=== PATIENT | male | born 1975 | race American Indian/Alaskan Native ===

== ENCOUNTER 2017-11-20 03:20 | Emergency (ER) | payer MEDICAID, OTHER ==
[2017-11-20 05:00] LABS: Urine Drugs of Abuse Note Disclamer
[2017-11-20 05:17] LABS: Anion Gap 17 mmol/L; BUN/Creatinine Ratio 10; Blood Urea Nitrogen 10 mg/dL (9-20); Calcium 9.1 mg/dL (8.4-10.2); Carbon Dioxide 25 mmol/L (22-30); Chloride 102.5 mmol/L (98-107); Glucose 126 mg/dL (75-100); Potassium 3.5 mmol/L (3.6-5.0); Sodium 141 mmol/L (137-145)
[2017-11-20 05:21] LABS: Bilirubin,Urine NEG (Negative); Blood,Urine NEG (Negative); Ketones,Urine NEG (Negative); Leukocyte Esterase,Urine NEG (Negative); Nitrite,Urine NEG (Negative); Protein,Urine <15 mg/dL mg/dL (Negative); Urobilinogen,Urine < 2.0 mg/dL (<2.0)
[2017-11-20 05:28] LABS: Basophils % (Auto) 0.4 % (0.0-1.8); Hematocrit 46.1 % (35.5-45.6); Hemoglobin 15.4 gm/dl (11.8-15.2); Mean Corpuscular HGB Conc 34 % (32-34); Mean Corpuscular Hemoglobin 27 pg (28-32); Mean Corpuscular Volume 81 fl (84-94); Platelet Count 237 K/mm3 (140-440); Red Cell Distribution Width 13.7 % (13.2-15.2); White Blood Count 7.7 K/mm3 (4.5-11.0)
--- NOTE | 2017-11-20 06:26 | Emergency Department Report ---
HPI - General Chief Complaint: Psych Time Seen by Provider: 11/20/17 04:24 - HPI HPI: Room 8 The patient is a 42-year-old male presenting with chief complaint of suicidal ideation. The patient states he was in a conversation with his and she wanted a divorce. The patient states he was upset and hurt. The patient states he walked to the front room achieved his firearm and handed to his told her to call police or he is going to do something to himself. Patient states he was "bluffing." The patient's called police when turned showed up and transport the patient to the ED for evaluation. Patient denies any attempts at harming himself. Location: Mental state Duration: Just prior to arrival Quality: Suicidal ideation Severity: Severe Modifying factors: [see above] Context: [see above] Mode of transportation: [not driving] ED Past Medical Hx - Past Medical History Previous Medical History?: Yes Hx Hypertension: Yes Hx Diabetes: Yes Hx GERD: Yes Hx of Cancer: Yes (prostate CA) Hx Arthritis: Yes Additional medical history: Gout - Surgical History Past Surgical History?: Yes Additional Surgical History: "mass removed under right arm". "Prostate surgery for prostate cancer" - Family History Family history: no significant - Social History Smoking Status: Current Every Day Smoker Substance Use Type: None (denies illicit drug use), Alcohol (rarely) - Medications Home Medications: Home Medications Medication Instructions Recorded Confirmed Last Taken Type Lisinopril 10 mg PO DAILY 01/20/15 01/20/15 01/20/15 History 10mg Pantoprazole [Protonix TAB] 40 mg PO DAILY 01/20/15 01/20/15 01/20/15 History 40mg metFORMIN [Glucophage] 500 mg PO BID 30 Days tablet 01/20/15 Unknown Rx ED Review of Systems ROS: Stated complaint: MH EVAL Other details as noted in HPI Psychiatric: suicidal thoughts Physical Exam - Physical Exam Vital Signs: Vital Signs 11/20/17 04:06 Temperature 98.5 F Pulse Rate 94 H Respiratory 17 Rate Blood Pressure 149/107 O2 Sat by Pulse 99 Oximetry Physical Exam: GENERAL: The patient is well-developed well-nourished male sleeping on stretcher not appearing to be in acute distress. Awakens easily HEENT: Normocephalic. Atraumatic. Extraocular motions are intact. Patient has moist mucous membranes. NECK: Supple. Trachea midline CHEST/LUNGS: Clear to auscultation. There is no respiratory distress noted. HEART/CARDIOVASCULAR: Regular. There is no tachycardia. There is no gallop rub or murmur. ABDOMEN: Abdomen is soft, nontender. Patient has normal bowel sounds. There is no abdominal distention. SKIN: There is no rash. There is no edema. There is no diaphoresis. NEURO: The patient is awake, alert, and oriented. The patient is cooperative. The patient has normal speech MUSCULOSKELETAL: There is no evidence of acute injury. ED Course Vital Signs 11/20/17 04:06 Temperature 98.5 F Pulse Rate 94 H Respiratory 17 Rate Blood Pressure 149/107 O2 Sat by Pulse 99 Oximetry ED Medical Decision Making - Lab Data Result diagrams: 11/20/17 04:46 11/20/17 04:46 Laboratory Tests 11/20/17 11/20/17 11/20/17 04:46 04:46 04:46 WBC 7.7 RBC 5.70 H Hgb 15.4 H Hct 46.1 H MCV 81 L MCH 27 L MCHC 34 RDW 13.7 Plt Count 237 Lymph % (Auto) 22.7 [place] % (Auto) 8.9 H Eos % (Auto) 1.0 Baso % (Auto) 0.4 Lymph # 1.8 [place] # 0.7 Eos # 0.1 Baso # 0.0 Seg Neutrophils % 67.0 Seg Neutrophils # 5.2 Sodium 141 Potassium 3.5 L Chloride 102.5 Carbon Dioxide 25 Anion Gap 17 BUN 10 Creatinine 1.0 Estimated GFR > 60 BUN/Creatinine Ratio 10 Glucose 126 H Calcium 9.1 Urine Color Urine Turbidity Urine pH Ur Specific [place] Urine Protein Urine Glucose (UA) Urine Ketones Urine Blood Urine Nitrite Urine Bilirubin Urine Urobilinogen Ur Leukocyte Esterase Urine WBC (Auto) Urine RBC (Auto) U Epithel Cells (Auto) Hyaline Casts Salicylates Urine Opiates Screen Urine Methadone Screen Acetaminophen Ur Barbiturates Screen Ur Phencyclidine Scrn Ur Amphetamines Screen U Benzodiazepines Scrn Urine Cocaine Screen U Marijuana (THC) Screen Drugs of Abuse Note Plasma/Serum Alcohol < 0.01 11/20/17 11/20/17 11/20/17 06:13 06:13 Unknown WBC RBC Hgb Hct MCV MCH MCHC RDW Plt Count Lymph % (Auto) [place] % (Auto) Eos % (Auto) Baso % (Auto) Lymph # [place] # Eos # Baso # Seg Neutrophils % Seg Neutrophils # Sodium Potassium Chloride Carbon Dioxide Anion Gap BUN Creatinine Estimated GFR BUN/Creatinine Ratio Glucose Calcium Urine Color Yellow Urine Turbidity Clear Urine pH 6.0 Ur Specific [place] 1.012 Urine Protein <15 mg/dl Urine Glucose (UA) Neg Urine Ketones Neg Urine Blood Neg Urine Nitrite Neg Urine Bilirubin Neg Urine Urobilinogen < 2.0 Ur Leukocyte Esterase Neg Urine WBC (Auto) 1.0 Urine RBC (Auto) 4.0 U Epithel Cells (Auto) < 1.0 Hyaline Casts 4 Salicylates < 0.3 L Urine Opiates Screen Urine Methadone Screen Acetaminophen < 15.0 Ur Barbiturates Screen Ur Phencyclidine Scrn Ur Amphetamines Screen U Benzodiazepines Scrn Urine Cocaine Screen U Marijuana (THC) Screen Drugs of Abuse Note Plasma/Serum Alcohol 11/20/17 Unknown WBC RBC Hgb Hct MCV MCH MCHC RDW Plt Count Lymph % (Auto) [place] % (Auto) Eos % (Auto) Baso % (Auto) Lymph # [place] # Eos # Baso # Seg Neutrophils % Seg Neutrophils # Sodium Potassium Chloride Carbon Dioxide Anion Gap BUN Creatinine Estimated GFR BUN/Creatinine Ratio Glucose Calcium Urine Color Urine Turbidity Urine pH Ur Specific [place] Urine Protein Urine Glucose (UA) Urine Ketones Urine Blood Urine Nitrite Urine Bilirubin Urine Urobilinogen Ur Leukocyte Esterase Urine WBC (Auto) Urine RBC (Auto) U Epithel Cells (Auto) Hyaline Casts Salicylates Urine Opiates Screen Presumptive negative Urine Methadone Screen Presumptive negative Acetaminophen Ur Barbiturates Screen Presumptive negative Ur Phencyclidine Scrn Presumptive negative Ur Amphetamines Screen Presumptive negative U Benzodiazepines Scrn Presumptive negative Urine Cocaine Screen Presumptive positive U Marijuana (THC) Screen Presumptive negative Drugs of Abuse Note Disclamer Plasma/Serum Alcohol - Differential Diagnosis suicidal ideation Critical care attestation.: If time is entered above; I have spent that time in minutes in the direct care of this critically ill patient, excluding procedure time. ED Disposition Clinical Impression: Suicidal ideation Disposition: [id number]/TX-[id number] PSY HOSP/PSY UNIT Is pt being admited?: No Does the pt Need Aspirin: No Condition: Serious Referrals: PRIMARY CARE, [Primary Care Provider] - 3-5 Days Time of Disposition: 06:26 (awaiting acceptance)
--- NOTE | 2017-11-20 17:13 | Consultation ---
History of Present Illness - Reason for Consult Consult date: 11/20/17 Reason for consult: Mental Health Evaluation Requesting physician: FLEX RICHEY - Chief Complaint Chief complaint: "I was bluffing" - History of Present Psychiatric Illness The patient is a 42-year-old male presenting with chief complaint of suicidal ideation. Today patient is calm and cooperative during the assessment. He stated that he is having marital problems with his . He stated he would like her to be more respectful. He stated that she does not consider him when "she want to do what she want to do", per the patient. He stated he was "overwhelmed" with his 's behavior over a period of time, so he decided to grab his gun. He stated that he handed the gun to his because he felt like he would shoot himself. He stated that he was "bluffing" to get her attention so they can get along better in their marriage. He stated that they been having problems for years "on and off." He denies ever trying to commit suicide in the past or having a mental health dx. He denies SI/HI's and AVH's. He denies a poor appetite and sleep disturbance. He admitted to using cocaine prior to his crisis. He states cocaine use "sometimes." He denies excessive alcohol consumption (etoh). Medications and Allergies Allergies Allergy/AdvReac Type Severity Reaction Status Date / Time No Known Allergies Allergy Verified 12/05/14 09:42 Home Medications Medication Instructions Recorded Confirmed Last Taken Type Lisinopril 10 mg PO DAILY 01/20/15 11/20/17 11/19/17 History Pantoprazole [Protonix TAB] 40 mg PO DAILY 01/20/15 11/20/17 11/19/17 History 40 metFORMIN [Glucophage] 500 mg PO BID 30 Days tablet 01/20/15 11/20/17 11/19/17 Rx Past psychiatric history - Past Medical History Past Medical History: GERD, hypertension, other (Hx of Prostate CN) Past Surgical History: Other (Prostate removed) - past Psychiatric treatment and history psychiatric treatment history: Patient denies a psy hx and a fam psy hx. - Social History Social history: lives with family (8th grade education) Mental Status Exam - Vital signs Last Vital Signs Temp 98.5 F 11/20/17 04:06 Pulse 94 H 11/20/17 04:06 Resp 17 11/20/17 04:06 BP 149/107 11/20/17 04:06 Pulse Ox 99 11/20/17 04:06 - Exam Narrative exam: MSE: Appearance: calm, cooperative Behavior: regular eye contact Speech: regular rate and tone Mood: "okay" Affect: congruent to mood Thought Process: circumstantial Thought Content: denies SI/HI's and AVH's Motor Activity: sitting up in bed Cognition: A/O x3 Insight: variable Judgment: variable Results Result Diagrams: 11/20/17 04:46 11/20/17 04:46 Abnormal lab results 11/20/17 11/20/17 11/20/17 Range/Units 04:46 04:46 06:13 RBC 5.70 H (3.65-5.03) M/mm3 Hgb 15.4 H (11.8-15.2) gm/dl Hct 46.1 H (35.5-45.6) % MCV 81 L (84-94) fl MCH 27 L (28-32) pg [place]ane % (Auto) 8.9 H (0.0-7.3) % Potassium 3.5 L (3.6-5.0) mmol/L Glucose 126 H (75-100) mg/dL Salicylates < 0.3 L (2.8-20.0) mg/dL All other labs normal. Assessment and Plan Assessment and plan: Impression: MDD NOS. Substance Use DO (cocaine). Today patient is calm and cooperative during the assessment. DDx: R/O Bipolar, Substance Induced Mood DO Recommendation/Plan: Continue 1013 with placement to inpatient psy services. Discussed risk/benefits of antidepressants, patient prefer therapy with his at this time. Gather collateral information from patient's spouse.
[2017-11-22 05:02] VITALS: BP 122/77
--- NOTE | 2017-11-22 10:46 | Progress Note ---
Subjective - Reason for Consult Consult date: 11/22/17 Reason for consult: Psychiatry Follow-up - Chief Complaint Chief complaint: "Hello" The patient is a 42-year-old male presenting with chief complaint of suicidal ideation. Today patient is calm and cooperative during the assessment. He stated that he been reflecting about what happen prior to his admission to the hospital. He stated that his actions were not safe. He denies SI/HI's and AVH' s. Mental Status Exam - Vital signs Last Vital Signs Temp 98 F 11/22/17 05:01 Pulse 97 H 11/22/17 05:01 Resp 18 11/22/17 05:01 BP 122/77 11/22/17 05:01 Pulse Ox 99 11/22/17 05:01 - Exam Narrative exam: MSE: Appearance: calm, cooperative Behavior: regular eye contact Speech: regular rate and tone Mood: "okay" Affect: congruent to mood Thought Process: linear Thought Content: denies SI/HI's and AVH's Motor Activity: sitting up in bed Cognition: A/O x3 Insight: variable Judgment: variable Assessment and Plan Impression: MDD NOS. Substance Use DO (cocaine). Today patient is calm and cooperative during the assessment. DDx: R/O Bipolar, Substance Induced Mood DO Recommendation/Plan: Continue 1013 with placement to inpatient psy services. Discussed risk/benefits of antidepressants, patient prefer therapy with his at this time. Called and left a voice mail message for his Cris Maddox to return the call to gather collateral information.
== END 2017-11-22 18:51 ==
LOC: EEVIPCON 03:20 → ED 03:20
DX: R45.851 Suicidal ideations (principal); I10 Essential (primary) hypertension; E11.9 Type 2 diabetes mellitus without complications; K21.9 Gastro-esophageal reflux disease without esophagitis; C61 Malignant neoplasm of prostate; M19.90 Unspecified osteoarthritis, unspecified site; M10.9 Gout, unspecified; F17.200 Nicotine dependence, unspecified, uncomplicated
CPT/HCPCS: 36415; 80048; 80307; 81001; 85025; 99285; G0480; 80320

== ENCOUNTER 2018-01-03 23:53 | Emergency (ER) | payer SELFPAY | END 2018-01-04 00:50 | disposition left against medical advice (07) | LOC: ED 23:53 | DX: E11.9 Type 2 diabetes mellitus without complications (principal) ==